=== PATIENT | female | born 1945 | race Caucasian/White ===

== ENCOUNTER 2016-12-12 18:56 | Emergency (ER) | payer MEDICARE, OTHER ==
[~2016-12-12] VITALS: Ht 165.1 cm; Wt 77.3 kg
[~2016-12-12 18:56] MED LIST: AMBIEN10 MG PO; CELEBREX100 MG PO; CELEXA10 MG/5 ML PO; NEXIUM10 MG/Pack PO; NORCO 325 MG-51 TAB PO
[2016-12-12 19:03] VITALS: TEMP 99.3
[2016-12-12] MEDS ORDERED: AMBIEN 5MG TABLE5 MG PO (19:06)
[2016-12-12] MEDS ORDERED: PRILOSEC 20MG20 MG PO (19:07)
[2016-12-12 21:32] VITALS: BP 1488/60; PULSE 74
== END 2016-12-12 21:32 | disposition home or self-care (01) ==
LOC: COL.ER 18:56
DX: S01.511A Laceration without foreign body of lip, initial encounter (principal); W01.198A Fall on same level from slipping, tripping and stumbling with subsequent striking against other object, initial encounter; Y92.008 Other place in unspecified non-institutional (private) residence as the place of occurrence of the external cause; F32.9 Major depressive disorder, single episode, unspecified; Z87.891 Personal history of nicotine dependence

== ENCOUNTER → 2018-06-13 | Outpatient (CLI) | payer MEDICARE, OTHER ==
[~2018-06-13] MED LIST changes: +AMBIEN 5MG TABLE5 MG PO; +PRILOSEC 20MG20 MG PO
== END ==
LOC: MC.RAD 13:20
DX: Z12.31 Encounter for screening mammogram for malignant neoplasm of breast (principal); Z98.82 Breast implant status; Z98.890 Other specified postprocedural states; Z92.3 Personal history of irradiation

== ENCOUNTER 2019-03-07 14:02 | Outpatient (CLI) | payer MEDICARE, OTHER ==
[~2019-03-07] VITALS: Ht 165.1 cm; Wt 78.6 kg
[~2019-03-07 14:02] MED LIST changes: +CELEXA 20MG20 MG/TAB PO; -CELEXA10 MG/5 ML PO
[2019-03-07] MEDS ORDERED: CELEBREX 200MG200 MG PO (14:40)
[2019-03-07] MEDS ORDERED: CALCIUM 600MG+D1 TAB PO (14:41)
[2019-03-07 15:00] VITALS: BP 136/90; PULSE 83; TEMP 98
== END 2019-03-07 15:15 | disposition home or self-care (01) ==
LOC: EUO 14:02
DX: M81.0 Age-related osteoporosis without current pathological fracture (principal)
CPT/HCPCS: J0897

== ENCOUNTER 2019-09-09 13:47 | Outpatient (CLI) | payer MEDICARE, OTHER ==
[~2019-09-09] VITALS: Ht 165.1 cm; Wt 82.5 kg
[~2019-09-09 13:47] MED LIST changes: +CALCIUM 600MG+D1 TAB PO; +CELEBREX 200MG200 MG PO
[2019-09-09 14:20] VITALS: BP 137/74; PULSE 70; TEMP 98.1
== END 2019-09-09 14:34 | disposition home or self-care (01) ==
LOC: EUO 13:47
DX: M81.0 Age-related osteoporosis without current pathological fracture (principal)
CPT/HCPCS: J0897

== ENCOUNTER → 2019-10-03 | Outpatient (CLI) | payer MEDICARE, OTHER | LOC: MC.RAD 14:41 | DX: Z12.31 Encounter for screening mammogram for malignant neoplasm of breast (principal) ==

== ENCOUNTER 2020-04-09 13:52 | Outpatient (CLI) | payer MEDICARE, OTHER ==
[~2020-04-09] VITALS: Ht 165.1 cm; Wt 82.1 kg
[2020-04-09 14:45] VITALS: BP 144/79; PULSE 83; TEMP 97.8
--- NOTE | 2020-04-09 14:45 | NUR ---
Not happy that it took 45 minutes for the Prolia to come up from Pharmacy. When pt said " that took forty-five minutes" this nurse enthusiastically state " Yeah I know that great." The pt immediately was offended and this nurse explained that it usually take twice that time or more. the pt stated that " I want to speak to a marketing analytics manager. " Daksha Ramos pilot plant supervisor explained the costs of the medication and that per our protocol we have it in our pharmacy and have to scan it down to be brought up. Pt recieved Prolia injection in right upper arm .
== END 2020-04-09 16:50 | disposition home or self-care (01) ==
LOC: EUO 13:52
DX: M81.0 Age-related osteoporosis without current pathological fracture (principal)
CPT/HCPCS: J0897

== ENCOUNTER → 2020-10-12 | Outpatient (CLI) | payer MEDICARE, OTHER ==
[~2020-10-12] VITALS: Ht 165.1 cm; Wt 79.7 kg
[~2020-10-12] MED LIST changes: +FERROUSAL325 MG PO
[2020-10-12 16:07] VITALS: BP 123/75; PULSE 86; TEMP 97.7
== END ==
LOC: EUO 15:55
DX: M81.0 Age-related osteoporosis without current pathological fracture (principal)
CPT/HCPCS: J0897

== ENCOUNTER → 2020-11-04 | Outpatient (CLI) | payer MEDICARE, OTHER | LOC: MC.RAD 13:22 | DX: Z12.31 Encounter for screening mammogram for malignant neoplasm of breast (principal) ==

== ENCOUNTER 2021-04-15 15:00 | Outpatient (CLI) | payer MEDICARE, OTHER ==
[~2021-04-15] VITALS: Ht 165.1 cm; Wt 79.5 kg
[~2021-04-15 15:00] MED LIST changes: -FERROUSAL325 MG PO
[2021-04-15] MEDS ORDERED: FERROUSAL325 MG PO (15:58)
[2021-04-15 16:04] VITALS: BP 104/63; PULSE 94; TEMP 97.8
== END 2021-04-15 16:04 ==
LOC: EUO 15:00
DX: M81.0 Age-related osteoporosis without current pathological fracture (principal)
CPT/HCPCS: J0897

== ENCOUNTER → 2021-07-26 | Outpatient (CLI) | payer MEDICARE, OTHER ==
[~2021-07-26] MED LIST changes: +FERROUSAL325 MG PO
== END ==
LOC: COL.RAD 13:10
DX: Z12.2 Encounter for screening for malignant neoplasm of respiratory organs (principal); R91.1 Solitary pulmonary nodule; Z87.891 Personal history of nicotine dependence

== ENCOUNTER 2021-10-14 14:45 | Outpatient (CLI) | payer MEDICARE, OTHER ==
[~2021-10-14] VITALS: Ht 165.1 cm; Wt 81.5 kg
[2021-10-14 14:57] VITALS: BP 125/79; PULSE 75; TEMP 98.4
[2021-10-14] MEDS ORDERED: ONE-A-DAY ESSE1 EACH PO (15:07)
[2021-10-14] MEDS ORDERED: PROVENTIL0.09 MG/A1 IH (15:08)
== END 2021-10-14 15:30 | disposition home or self-care (01) ==
LOC: EUO 14:45
DX: M81.0 Age-related osteoporosis without current pathological fracture (principal)
CPT/HCPCS: J0897

== ENCOUNTER → 2021-11-24 | Outpatient (CLI) | payer MEDICARE, OTHER ==
[~2021-11-24] MED LIST changes: +ONE-A-DAY ESSE1 EACH PO; +PROVENTIL0.09 MG/A1 IH
== END ==
LOC: MC.RAD 10:10
DX: Z12.31 Encounter for screening mammogram for malignant neoplasm of breast (principal)

== ENCOUNTER 2022-04-20 14:53 | Outpatient (CLI) | payer MEDICARE, OTHER ==
[~2022-04-20] VITALS: Ht 165.1 cm; Wt 81.2 kg
[2022-04-20] MEDS ORDERED: NEURONTIN100 MG/CAP PO (15:19)
[2022-04-20 15:20] VITALS: BP 119/74; PULSE 78; TEMP 98.8
== END 2022-04-20 15:27 ==
LOC: EUO 14:53
DX: M81.0 Age-related osteoporosis without current pathological fracture (principal)
CPT/HCPCS: J0897

== ENCOUNTER → 2023-05-16 | Outpatient (CLI) | payer MEDICARE, OTHER ==
[~2023-05-16] MED LIST changes: +NEURONTIN100 MG/CAP PO
== END ==
LOC: ZCOL.LAB 13:59
DX: R60.0 Localized edema (principal); R58 Hemorrhage, not elsewhere classified

== ENCOUNTER → 2023-05-17 | Outpatient (CLI) | payer MEDICARE, OTHER | LOC: COL.RAD 10:28 | DX: R79.89 Other specified abnormal findings of blood chemistry (principal); M79.89 Other specified soft tissue disorders ==